=== PATIENT | female | born 1945 | race Hispanic/Latino ===

== ENCOUNTER → 2018-07-03 | Day surgery (SDC) | payer MEDICARE ==
[2018-07-01 15:04] LABS: BASOPHILS # (AUTO) 0.1 (0.0-0.1); BASOPHILS % 0.7 % (0.0-1.0); EOSINOPHILS # (AUTO) 0.2 (0.0-0.4); EOSINOPHILS % 2.4 % (0.0-6.0); HEMATOCRIT 37.4 % (34.2-44.1); HEMOGLOBIN 12.5 g/dL (12.0-16.0); LYMPHOCYTES # (AUTO) 2.7 (1.0-3.2); LYMPHOCYTES % 29.9 % (18.0-39.1); MEAN CORPUSCULAR HEMOGLOBIN 32.3 pg (28-32); MEAN CORPUSCULAR HGB CONC 33.4 g/dL (31-35); MEAN CORPUSCULAR VOLUME 96.6 fL (81-99); MONOCYTES # (AUTO) 0.8 (0.2-0.8); MONOCYTES % 8.5 % (4.4-11.3); NEUTROPHILS # (AUTO) 5.3 (2.1-6.9); NEUTROPHILS % 58.1 % (38.7-80.0); PLATELET COUNT 231 x10e3/uL (140-360); RED BLOOD COUNT 3.87 x10e6/uL (3.6-5.1); RED CELL DISTRIBUTION WIDTH 12.9 % (11.7-14.4)
--- NOTE | 2018-07-01 15:05 | Diagnostic Imaging Report ---
EXAM: CHEST 2 VIEWS, PA and lateral DATE: 07/01/2018 Time stamp on exam: 2:42 PM INDICATION: Preoperative for orthopedic surgery COMPARISON: None FINDINGS: LINES/TUBES: None LUNGS: No consolidations or edema. PLEURA: No effusions or pneumothorax. HEART AND MEDIASTINUM: Normal size and contour. BONES AND SOFT TISSUES: Partially visualized rods and screws overlying the lower spine. IMPRESSION: No acute thoracic abnormality. Signed by: Dr. Renan Parra DO on 07/01/2018 3:02 PM
[2018-07-01 15:19] LABS: ANION GAP 15.7 mmol/L (8-16); CALCIUM 9.7 mg/dL (8.4-10.2); CREATININE, SERUM 1.01 mg/dL (0.57-1.11); POTASSIUM 3.7 mmol/L (3.5-5.1)
[~2018-07-03] MED LIST: AMARYL4 MG PO; ASPIR 8181 MG PO; BUPIVACAINE 0.5%/EPI 30 ML SDV INJ ONE; CATAPRES0.2 MG PO; CEFAZOLIN SOD 2 GM/D5W 50ML 50 ML IV ONE; DEXAMETHASONE SOD PHOS INJ 4 MG/ML VIAL ONE; EPHEDRINE SULFATE INJ 50 MG/10 ML SYR ONE; EXFORGE HCT 101 EAC2 PO; FENTANYL CITRATE/PF 100MCG/2 ML INJ ONE; GLYCOPYRROLATE INJ 1MG/ 5 ML SYR ONE; HYDRALAZINE HC100 MG PO; ISOSORBIDE DINI10 MG PO; LEVOTHYROXINE125 MCG PO; LIDOCAINE HCL 2% LOCAL INJ 5 ML SDV VIAL INJ ONE; METOPROLOL TAR100 MG PO; METOPROLOL TARTRATE INJ 1 MG/ML VIAL ONE; OMEPRAZOLE40 MG PO; ONDANSETRON HCL INJ 2 MG/ML VIAL ONE; PROPOFOL IV EMULSION 10 MG/ML 20 ML VIAL ONE; SEVOFLURANE INHAL SOLN 250 ML PEN BTL ONE; ULTRAM50 MG PO; ZOCOR20 MG PO
--- OUTSIDE RECORDS SUMMARY | 2018-07-03 08:51 | XMS REPORT ---
Author [facility] Address Unknown Phone Unavailable Care Team Providers Care Cashiers Supervisor Name Role Phone ADINA BROCK Unavailable Unavailable Problems This patient has no known problems. Allergies, Adverse Reactions, Alerts This patient has no known allergies or adverse reactions. Medications This patient has no known medications. Results Test Description Test Time Test Comments Text Results Atomic Results Result Comments CHEST 2 VIEWS 2018-07-01 15:00:00 [place] [address] Patient Name: SHERIE NARVAEZ MR #: [id number] : 1945 Age/Sex: 73/F Req #: [id number] Adm Physician: Ordered by: ADINA BROCK MD Report #: [id number] Location: OR Room/Bed: Procedure: [id number] DX/CHEST 2 VIEWS Exam Date: 07/01/18 Exam Time: 1441 REPORT STATUS: Signed EXAM: CHEST 2 VIEWS, PA and lateral DATE: 07/01/2018 Time s tamp on exam: 2:42 PM INDICATION: Preoperative for orthopedic surgery COMPARISON: None FINDINGS: LINES/TUBES: None LUNGS: No consolidations or edema. PLEURA: No effusions or pneumothorax. HEART AND MEDIASTINUM: Normal size and contour. BONES AND SOFT TISSUES: Partially visualized rods and screws overlying the lower spine. IMPRESSION: No acute thoracic abnormality. Signed by: Dr. Ramiro Parra DO on 07/01/2018 3:02 PM Dictated By: RAMIRO PARRA DO 1502 Transcribed By: TERRANCE on 07/01/18 150 COPY TO: ADINA BROCK MD
[2018-07-03 13:40] VITALS: BP 150/94
--- NOTE | 2018-07-04 13:44 | Operative Report ---
DATE OF PROCEDURE: July 03, 2018 PREOPERATIVE DIAGNOSES 1. Right knee medial meniscus tear. 2. Right knee lateral meniscus tear. 3. Right knee degenerative joint disease of the knee. POSTOPERATIVE DIAGNOSES 1. Right knee medial meniscus tear. 2. Right knee lateral meniscus tear. 3. Right knee degenerative joint disease of the knee. OPERATIONS/PROCEDURES PERFORMED 1. The patient underwent a right knee examination under anesthesia. 2. Right knee arthroscopy. 3. Right knee partial medial meniscectomy. 4. Right knee partial lateral meniscectomy. 5. Right knee chondroplasty of the patella, the trochlea, the medial femoral condyle, the medial tibial plateau, the lateral femoral condyle, and lateral tibial plateau. DISABILITY ATTORNEY: Tootie Acosta ANESTHESIA: General endotracheal intubation anesthesia. IV FLUIDS: Per anesthesia record. BRIEF DESCRIPTION OF THE PATIENT'S OPERATIVE PROCEDURE: Ms. Owusu was taken to the operating room and placed in the supine position on the operating table. Following induction general anesthesia, as well as endotracheal intubation, the patient's right lower extremity was examined under anesthesia. She was found to have a mild effusion within the knee joint, but otherwise ligamentously stable knee. The patient's lower extremity was prepped and draped in a standard surgical fashion. A 2-portal technique was used to provide this patient arthroscopic evaluation of the knee joint. Examination of the suprapatellar pouch, medial and lateral gutters found no evidence of loose bodies. Scope was advanced in the medial compartment. Examination of the medial compartment demonstrated a torn medial meniscus. There also chondromalacia of the articulating surfaces. A combination of biting forceps and motorized shaver were used to resect the torn portion of the meniscus. Chondroplasties of the medial femoral condyle and medial tibial plateau were performed at this time. Scope was then advanced in the intercondylar notch, and the anterior cruciate ligament was identified and found to be intact. Scope was advanced in the lateral compartment, and a lateral meniscus tear was encountered. There was also chondromalacia of the articulating surfaces. A combination of biting forceps and motorized shaver were used to resect the torn portion of the meniscus. Chondroplasties of the lateral femoral condyle and lateral tibial plateau were performed at this time. Scope was then placed in the suprapatellar pouch, and chondroplasties of the patellar and trochlear were performed. The knee was then deflated of its sterile normal saline. Each of the portal sites were closed using 4-0 nylon suture. The portal sites, as well as the knee itself were then injected with 0.5% Marcaine with epinephrine. Sterile dressings were applied. The patient was awakened and taken to the postanesthesia care unit in stable condition. Job#: [id number]
== END | disposition home or self-care (01) ==
LOC: OR 08:49
PROVIDERS: ATTEND Specialist
DX: S83.221A Peripheral tear of medial meniscus, current injury, right knee, initial encounter (principal); S83.261A Peripheral tear of lateral meniscus, current injury, right knee, initial encounter; S83.222A Peripheral tear of medial meniscus, current injury, left knee, initial encounter; S83.262A Peripheral tear of lateral meniscus, current injury, left knee, initial encounter; M17.0 Bilateral primary osteoarthritis of knee; M22.41 Chondromalacia patellae, right knee; E11.9 Type 2 diabetes mellitus without complications; I44.0 Atrioventricular block, first degree; R00.1 Bradycardia, unspecified; I10 Essential (primary) hypertension; E03.9 Hypothyroidism, unspecified; E78.00 Pure hypercholesterolemia, unspecified; K21.9 Gastro-esophageal reflux disease without esophagitis; X58.XXXA Exposure to other specified factors, initial encounter; Z01.810 Encounter for preprocedural cardiovascular examination; Z01.812 Encounter for preprocedural laboratory examination; Z01.818 Encounter for other preprocedural examination; Z79.82 Long term (current) use of aspirin; Z79.84 Long term (current) use of oral hypoglycemic drugs; Z68.32 Body mass index [BMI] 32.0-32.9, adult
CPT/HCPCS: 29880; 36415 ×2; 71046; 80048; 82948; 85025; 93005; J0690; J1100; J2001; J2405; J2704; J3490

== ENCOUNTER 2019-06-13 22:00 | Emergency (ER) | payer MEDICARE ==
[~2019-06-13] VITALS: Ht 160 cm; Wt 83.5 kg
[~2019-06-13 22:00] MED LIST changes: -BUPIVACAINE 0.5%/EPI 30 ML SDV INJ ONE; -CEFAZOLIN SOD 2 GM/D5W 50ML 50 ML IV ONE; -DEXAMETHASONE SOD PHOS INJ 4 MG/ML VIAL ONE; -EPHEDRINE SULFATE INJ 50 MG/10 ML SYR ONE; -FENTANYL CITRATE/PF 100MCG/2 ML INJ ONE; -GLYCOPYRROLATE INJ 1MG/ 5 ML SYR ONE; -LIDOCAINE HCL 2% LOCAL INJ 5 ML SDV VIAL INJ ONE; -METOPROLOL TARTRATE INJ 1 MG/ML VIAL ONE; -ONDANSETRON HCL INJ 2 MG/ML VIAL ONE; -PROPOFOL IV EMULSION 10 MG/ML 20 ML VIAL ONE; -SEVOFLURANE INHAL SOLN 250 ML PEN BTL ONE
--- NOTE | 2019-06-13 22:10 | NUR ---
DR. DONALDSON IN TRIAGE FOR PT EVALUATION. DR. DONALDSON GAVE EXTENSIVE INSTRUCTIONS WHEN D/C. DR. DONALDSON NOTIFIED PT OF EYE PRECAUTIONS.
[2019-06-13] MEDS ORDERED: VALACYCLOVIR500 MG PO (22:19)
[2019-06-13] MEDS ORDERED: ARTIFICIAL TEAR15 ML OP (22:19)
[2019-06-13] MEDS ORDERED: PREDNISONE20 MG PO (22:19)
--- NOTE | 2019-06-13 22:27 | NUR ---
MANAGER EPIC AND DR. DONALDSON IN TRIAGE DISCUSSING PT'S BP AND ASKED TO WATCHED BP DECREASE. PT STATES SHE DOES NOT WANT TO STAY FOR BP WATCH, PT STATES "NO I AM OKAY. I KNOW WHEN MY BP IS HIGH AND WHEN I GET HOME I WILL TAKE MY MEDICATIONS". NAD NOTED AT THIS TIME.
[2019-06-13 22:38] VITALS: BP 169/85
[2019-06-13] MEDS ORDERED: CLONIDINE HCL 0.1 MG TAB ONE (22:49)
[2019-06-13] MEDS ORDERED: CLONIDINE HCL 0.1 MG TAB PO ONE (23:00)
== END 2019-06-13 23:33 | disposition home or self-care (01) ==
LOC: ER 22:00
DX: G51.0 Bell's palsy (principal)
CPT/HCPCS: 99282

== ENCOUNTER 2019-06-25 20:05 | Emergency (ER) | payer MEDICARE ==
[~2019-06-25] VITALS: Ht 160 cm; Wt 83.5 kg
[~2019-06-25 20:05] MED LIST changes: +ARTIFICIAL TEAR15 ML OP; +PREDNISONE20 MG PO; +VALACYCLOVIR500 MG PO
== END 2019-06-25 21:06 | disposition home or self-care (01) ==
LOC: ER 20:05
DX: G51.0 Bell's palsy (principal); I10 Essential (primary) hypertension; E11.9 Type 2 diabetes mellitus without complications; E78.5 Hyperlipidemia, unspecified
CPT/HCPCS: 99282

== ENCOUNTER 2021-05-20 09:30 | Inpatient (IN) | payer MEDICARE ==
[~2021-05-20] VITALS: Ht 160 cm; Wt 83.5 kg
[2021-05-20] MEDS ORDERED: MEROPENEM 1 GM in SODIUM CHLORIDE 0.9% 100 ML IV ONE (10:15)
[2021-05-20] MEDS ORDERED: SODIUM CHLORIDE 0.9% 1000ML 1,000 ML IV STA (10:15)
[2021-05-20 10:27] LABS: BASOPHILS # (AUTO) 0.1 (0.0-0.1); BASOPHILS % 0.6 % (0.0-1.0); EOSINOPHILS # (AUTO) 0.2 (0.0-0.4); EOSINOPHILS % 2.1 % (0.0-6.0); HEMATOCRIT 36.1 % (34.2-44.1); HEMOGLOBIN 11.6 g/dL (12.0-16.0); LYMPHOCYTES # (AUTO) 1.7 (1.0-3.2); LYMPHOCYTES % 19.2 % (18.0-39.1); MEAN CORPUSCULAR HEMOGLOBIN 31.4 pg (28-32); MEAN CORPUSCULAR HGB CONC 32.1 g/dL (31-35); MEAN CORPUSCULAR VOLUME 97.8 fL (81-99); MONOCYTES # (AUTO) 0.7 (0.2-0.8); MONOCYTES % 7.7 % (4.4-11.3); NEUTROPHILS # (AUTO) 6.3 (2.1-6.9); PLATELET COUNT 253 x10e3/uL (140-360); RED BLOOD COUNT 3.69 x10e6/uL (3.6-5.1); RED CELL DISTRIBUTION WIDTH 13.8 % (11.7-14.4)
[2021-05-20 10:41] LABS: ANION GAP 16.1 mmol/L (8-16); CALCIUM 9.5 mg/dL (8.4-10.2); CREATININE, SERUM 1.34 mg/dL (0.57-1.11); MAGNESIUM 1.9 MG/DL (1.3-2.1); POTASSIUM 4.1 mmol/L (3.5-5.1)
[2021-05-20] MEDS ORDERED: ONDANSETRON HCL INJ 2MG/ML 2ML 2 MG/ML VIAL IV PRN (11:15)
[2021-05-20] MEDS ORDERED: DEXTROSE 50% SYRINGE 50 ML IV PRN (11:15)
[2021-05-20 11:27] LABS: CLARITY,URINE TURBID (CLEAR); COLOR,URINE YELLOW (YELLOW); LEUKOCYTE ESTERASE ,URINE SMALL (NEGATIVE); NITRITE,URINE NEGATIVE (NEGATIVE)
[2021-05-20 11:28] LABS: BACTERIA,URINE MODERATE /HPF; EPITHELIAL CELLS,URINE MODERATE /LPF; KETONES,URINE NEGATIVE (NEGATIVE); PROTEIN,URINE DIPSTICK 1+ (NEGATIVE); RBC,URINE >50 /HPF (0-5); URINE UROBILINOGEN 0.2 mg/dL (0.2 - 1); WBC,URINE (MAN) >50 /HPF (0-5)
[2021-05-20] MEDS: INSULIN LISPRO 100 UNIT/1 ML 3ML VIAL SQ SCH ×3 (11:49→20:41)
[2021-05-20] MEDS: SODIUM CHLORIDE 0.9% 1000ML 1,000 ML IV SCH ×2 (11:49→20:42)
[2021-05-20 14:46] VITALS: BP 178/60
[2021-05-20 15:53] VITALS: BP 155/63
[2021-05-20 19:56] VITALS: BP 195/88
[2021-05-20] MEDS: MEROPENEM 1 GM in SODIUM CHLORIDE 0.9% 100 ML IV SCH (20:42)
[2021-05-20] MEDS: CLONIDINE HCL 0.2 MG TAB PO SCH (20:42)
[2021-05-20] MEDS: METOPROLOL TARTRATE 50 MG TAB PO SCH (20:43)
[2021-05-20] MEDS ORDERED: ACETAMINOPHEN 325 MG TAB PO PRN (21:30)
[2021-05-21] VITALS (7 sets, daily range): BP systolic 140–163; BP diastolic 44–71
[2021-05-21 06:02] LABS: BASOPHILS % 0.4 % (0.0-1.0); EOSINOPHILS # (AUTO) 0.2 (0.0-0.4); EOSINOPHILS % 3.3 % (0.0-6.0); HEMATOCRIT 32.2 % (34.2-44.1); HEMOGLOBIN 10.6 g/dL (12.0-16.0); LYMPHOCYTES % 28.4 % (18.0-39.1); MEAN CORPUSCULAR HEMOGLOBIN 31.4 pg (28-32); MEAN CORPUSCULAR HGB CONC 32.9 g/dL (31-35); MEAN CORPUSCULAR VOLUME 95.3 fL (81-99); MONOCYTES # (AUTO) 0.7 (0.2-0.8); MONOCYTES % 10.3 % (4.4-11.3); NEUTROPHILS # (AUTO) 4.1 (2.1-6.9); NEUTROPHILS % 57.3 % (38.7-80.0); PLATELET COUNT 196 x10e3/uL (140-360); RED BLOOD COUNT 3.38 x10e6/uL (3.6-5.1); RED CELL DISTRIBUTION WIDTH 13.8 % (11.7-14.4)
[2021-05-21 06:26] LABS: ALBUMIN 3.4 g/dL (3.5-5.0); ALBUMIN/GLOBULIN RATIO 1.1 (0.8-2.0); ANION GAP 13.1 mmol/L (8-16); CALCIUM 8.8 mg/dL (8.4-10.2); CREATININE, SERUM 0.94 mg/dL (0.57-1.11); POTASSIUM 4.1 mmol/L (3.5-5.1)
[2021-05-21] MEDS: INSULIN LISPRO 100 UNIT/1 ML 3ML VIAL SQ SCH ×4 (07:30→21:00)
[2021-05-21] MEDS: MEROPENEM 1 GM in SODIUM CHLORIDE 0.9% 100 ML IV SCH ×2 (08:35→20:58)
[2021-05-21] MEDS: SODIUM CHLORIDE 0.9% 1000ML 1,000 ML IV SCH (08:35)
[2021-05-21] MEDS: CLONIDINE HCL 0.2 MG TAB PO SCH ×3 (08:35→20:59)
[2021-05-21] MEDS: METOPROLOL TARTRATE 50 MG TAB PO SCH ×2 (08:36→16:26)
[2021-05-21 09:18] LABS: CHOL/HDL RATIO 3.4 (3.0-3.6)
[2021-05-21] MEDS: HYDRALAZINE HCL 100 MG TABLET PO SCH ×3 (13:09→21:03)
[2021-05-21] MEDS: SENNOSIDES 8.6 MG TAB PO SCH (13:09)
[2021-05-21] MEDS: ENOXAPARIN SOD INJ 40 MG/0.4 ML SYR SC SCH (16:26)
[2021-05-21] MEDS: ACETAMINOPHEN 325 MG TAB PO PRN (20:58)
[2021-05-22] MEDS: SODIUM CHLORIDE 0.9% 1000ML 1,000 ML IV SCH ×4 (00:09→20:36)
[2021-05-22 00:15] VITALS: BP 150/47
[2021-05-22 05:11] VITALS: BP 148/60
[2021-05-22] MEDS: SIMVASTATIN 20 MG TAB PO SCH (06:44)
[2021-05-22] MEDS: LEVOTHYROXINE SODIUM 125 MCG TAB PO SCH (06:44)
[2021-05-22] MEDS: INSULIN LISPRO 100 UNIT/1 ML 3ML VIAL SQ SCH ×4 (07:30→20:30)
[2021-05-22 09:18] VITALS: BP 170/67
[2021-05-22 09:18] LABS: BASOPHILS % 0.6 % (0.0-1.0); EOSINOPHILS # (AUTO) 0.2 (0.0-0.4); EOSINOPHILS % 2.6 % (0.0-6.0); HEMATOCRIT 32.1 % (34.2-44.1); HEMOGLOBIN 10.5 g/dL (12.0-16.0); LYMPHOCYTES # (AUTO) 1.9 (1.0-3.2); LYMPHOCYTES % 27.6 % (18.0-39.1); MEAN CORPUSCULAR HEMOGLOBIN 31.5 pg (28-32); MEAN CORPUSCULAR HGB CONC 32.7 g/dL (31-35); MEAN CORPUSCULAR VOLUME 96.4 fL (81-99); MONOCYTES # (AUTO) 0.7 (0.2-0.8); MONOCYTES % 9.9 % (4.4-11.3); NEUTROPHILS # (AUTO) 4.1 (2.1-6.9); PLATELET COUNT 185 x10e3/uL (140-360); RED BLOOD COUNT 3.33 x10e6/uL (3.6-5.1); RED CELL DISTRIBUTION WIDTH 14.1 % (11.7-14.4)
[2021-05-22] MEDS: MEROPENEM 1 GM in SODIUM CHLORIDE 0.9% 100 ML IV SCH ×2 (09:22→20:28)
[2021-05-22] MEDS: CLONIDINE HCL 0.2 MG TAB PO SCH ×3 (09:23→20:29)
[2021-05-22] MEDS: HYDRALAZINE HCL 100 MG TABLET PO SCH ×3 (09:23→20:29)
[2021-05-22] MEDS: METOPROLOL TARTRATE 50 MG TAB PO SCH ×2 (09:23→17:09)
[2021-05-22] MEDS: SENNOSIDES 8.6 MG TAB PO SCH (09:24)
[2021-05-22 09:49] LABS: ANION GAP 13.1 mmol/L (8-16); CALCIUM 8.8 mg/dL (8.4-10.2); CREATININE, SERUM 0.84 mg/dL (0.57-1.11); POTASSIUM 4.1 mmol/L (3.5-5.1)
[2021-05-22 10:20] VITALS: BP 170/67
[2021-05-22] MEDS: ENOXAPARIN SOD INJ 40 MG/0.4 ML SYR SC SCH (17:09)
[2021-05-22 20:20] VITALS: BP 167/85
[2021-05-22] MEDS: ACETAMINOPHEN 325 MG TAB PO PRN (20:29)
[2021-05-22 21:00] VITALS: BP 167/85
[2021-05-23] VITALS (10 sets, daily range): BP systolic 121–196; BP diastolic 44–90
[2021-05-23] MEDS: SIMVASTATIN 20 MG TAB PO SCH (06:21)
[2021-05-23] MEDS: LEVOTHYROXINE SODIUM 125 MCG TAB PO SCH (06:21)
[2021-05-23] MEDS: INSULIN LISPRO 100 UNIT/1 ML 3ML VIAL SQ SCH ×4 (07:30→20:32)
[2021-05-23] MEDS: CLONIDINE HCL 0.2 MG TAB PO SCH ×3 (08:21→20:30)
[2021-05-23] MEDS: SENNOSIDES 8.6 MG TAB PO SCH (08:21)
[2021-05-23] MEDS: MEROPENEM 1 GM in SODIUM CHLORIDE 0.9% 100 ML IV SCH ×2 (08:21→20:24)
[2021-05-23] MEDS: METOPROLOL TARTRATE 50 MG TAB PO SCH ×2 (08:21→16:13)
[2021-05-23] MEDS: SODIUM CHLORIDE 0.9% 1000ML 1,000 ML IV SCH (08:21)
[2021-05-23] MEDS: HYDRALAZINE HCL 100 MG TABLET PO SCH ×3 (08:21→20:31)
[2021-05-23] MEDS: ACETAMINOPHEN 325 MG TAB PO PRN ×2 (08:27→20:32)
[2021-05-23 10:18] LABS: BASOPHILS % 0.3 % (0.0-1.0); EOSINOPHILS # (AUTO) 0.1 (0.0-0.4); EOSINOPHILS % 2.2 % (0.0-6.0); HEMATOCRIT 30.2 % (34.2-44.1); HEMOGLOBIN 9.7 g/dL (12.0-16.0); LYMPHOCYTES # (AUTO) 1.4 (1.0-3.2); LYMPHOCYTES % 23.9 % (18.0-39.1); MEAN CORPUSCULAR HEMOGLOBIN 31.5 pg (28-32); MEAN CORPUSCULAR HGB CONC 32.1 g/dL (31-35); MEAN CORPUSCULAR VOLUME 98.1 fL (81-99); MONOCYTES # (AUTO) 0.6 (0.2-0.8); MONOCYTES % 10.8 % (4.4-11.3); NEUTROPHILS # (AUTO) 3.7 (2.1-6.9); NEUTROPHILS % 61.8 % (38.7-80.0); PLATELET COUNT 152 x10e3/uL (140-360); RED BLOOD COUNT 3.08 x10e6/uL (3.6-5.1)
[2021-05-23 10:42] LABS: ANION GAP 13.6 mmol/L (8-16); CALCIUM 10.7 mg/dL (8.4-10.2); CREATININE, SERUM 0.79 mg/dL (0.57-1.11); POTASSIUM 4.6 mmol/L (3.5-5.1)
[2021-05-23] MEDS ORDERED: ONDANSETRON HCL 4 MG ORAL DISINTEGRATING TAB PO PRN (10:45)
[2021-05-23] MEDS: ENOXAPARIN SOD INJ 40 MG/0.4 ML SYR SC SCH (16:13)
[2021-05-24] VITALS (8 sets, daily range): BP systolic 128–187; BP diastolic 44–80
[2021-05-24] MEDS: SODIUM CHLORIDE 0.9% 1000ML 1,000 ML IV SCH ×3 (02:30→15:27)
[2021-05-24] MEDS: SIMVASTATIN 20 MG TAB PO SCH (06:44)
[2021-05-24] MEDS: LEVOTHYROXINE SODIUM 125 MCG TAB PO SCH (06:44)
[2021-05-24] MEDS: INSULIN LISPRO 100 UNIT/1 ML 3ML VIAL SQ SCH ×3 (07:30→16:03)
[2021-05-24] MEDS: MEROPENEM 1 GM in SODIUM CHLORIDE 0.9% 100 ML IV SCH (09:12)
[2021-05-24] MEDS: CLONIDINE HCL 0.2 MG TAB PO SCH ×2 (09:12→15:27)
[2021-05-24] MEDS: HYDRALAZINE HCL 100 MG TABLET PO SCH ×2 (09:13→15:27)
[2021-05-24] MEDS: METOPROLOL TARTRATE 50 MG TAB PO SCH (09:13)
[2021-05-24] MEDS: SENNOSIDES 8.6 MG TAB PO SCH (09:13)
== END 2021-05-24 17:17 | disposition home or self-care (01) | DRG 690 ==
LOC: ER 09:42 → ERHOLD 11:15 → MED/SURG3 13:13
PROVIDERS: ADMIT Internal Medicine; ATTEND Internal Medicine
DX: N30.90 Cystitis, unspecified without hematuria (principal); Z16.12 Extended spectrum beta lactamase (ESBL) resistance; N17.9 Acute kidney failure, unspecified; B96.1 Klebsiella pneumoniae [K. pneumoniae] as the cause of diseases classified elsewhere; K21.9 Gastro-esophageal reflux disease without esophagitis; E66.9 Obesity, unspecified; Z68.32 Body mass index [BMI] 32.0-32.9, adult; E03.9 Hypothyroidism, unspecified; E11.9 Type 2 diabetes mellitus without complications; Z20.822 Contact with and (suspected) exposure to COVID-19
CPT/HCPCS: 36415; 74176; 80048; 80053; 80061; 81001; 82948; 83036; 83735; 85025; 87040; 87086; 87186; 96372; 99284; J1650; J2185; J7030; J7050; U0002